=== PATIENT | male | born 1960 | race Hispanic/Latino ===

== ENCOUNTER 2017-04-18 10:39 | Emergency (ER) | payer OTHER ==
[~2017-04-18] VITALS: Ht 165.1 cm; Wt 69.5 kg
[~2017-04-18 10:39] MED LIST: DULO20CA PO; OXYC1TAB11 PO; PEG4000S8 PO; QUET50TA PO
[2017-04-18 10:59] VITALS: BP 128/78; PULSE 79; RESP 17; O2SAT 99
--- NOTE | 2017-04-18 11:04 | ED.REPORT ---
HPI-Chest Pain 40 and Over Date of Service Apr 18, 2017 ED Provider: Malcolm Mac MD A 57 year old male with a history of Hodgkin's lymphoma in remission is referred to the ED from Urgent Care due to chest pain. The pt has been experiencing palpitations and significant chest pain with left arm extension for twelve years, and has been prescribed OxyContin to manage these symptoms. He was prescribed the OxyContin in 5 mg doses but has been taking 10 mg doses to relieve his pain. He has now run out of this medication. The pt denies bowel or bladder incontinence. He has a follow up appointment scheduled on 04/25/2017. Nursing Notes Stated Complaint: CHEST PAIN/FROM UC Chief Complaint: General Complaint Nursing Notes Reviewed: Yes Allergies: Coded Allergies: ibuprofen (Verified Allergy, Unknown, RASH, 11/04/15) Uncoded Allergies: NUTS (Allergy, Unknown, 12/22/14) Scheduled Duloxetine-Expunged Drug, Do Not Renew! (Cymbalta-Expunged Drug, Do Not Renew!) 20 Mg Capsule.dr 20 MG PO DAILY For Mental Wellbeing. Peg 3350/Na Sulf,Bicarb,Cl/Kcl (Golytely Solution) 4,000 Ml Soln.recon 4,000 ML PO UD Quetiapine-Expunged Drug, Do Not Renew! (Seroquel-Expunged Drug, Do Not Renew!) 50 Mg Tablet 50 MG PO DAILY Scheduled PRN Oxycodone/APAP-Expunged Drug, Do Not Renew! (Percocet-Expunged Drug, Do Not Renew!) 1 Each Tablet 1-2 EACH PO Q6 PRN PRN General Time Seen by MD: 11:04 Chief Complaint Chest pain Hx Obtained From: Patient Arrived By: Walk-in Sudden in Onset?: No Onset Occurred: More than a week ago... Symptom Duration: Since onset Recent Healthcare: Recent doctor visit Similar Sx Previous: Yes Past Medical History Past Medical History chronic pain hodgkins lymphoma in 2012 (currently in remission) Past Surgical History right shoulder surgery Smoking History Current Every Day Smoker Social History Alcohol Use: Denies alcohol use Drug Use: Denies drug use Other Social History: Good social support, Local resident Occupation not working Ambulatory Status Independent Review of Systems Respiratory: Denies: Non-productive cough, Shortness of breath Cardiovascular: Reports: Chest pain, Palpitations GI: Denies: Abdominal pain, Vomiting Musculoskeletal: Denies: Back pain, Neck pain Skin: Denies Rash Neurologic: Denies: Bladder dysfunction, Bowel dysfunction Complete sys rev & neg: except as marked. Physical Exam Initial Vital Signs Vital Signs (First) Date Time Temp Pulse Resp B/P Pulse Ox O2 Delivery O2 Flow Rate FiO2 04/18/17 10:59 36.8 79 17 128/78 99 Room Air Initial VS: Reviewed General/Constitutional: Awake, Alert Respiratory / Chest: Atraumatic, Breath sounds NL, Breath sounds = bilat, No respiratory distress left chest wall tenderness Cardiovascular: Heart rate NL, Regular rhythm, Heart sounds NL Abdomen: Atraumatic, Soft, Non-tender Neck: Atraumatic, Supple, Full range of motion Back: Atraumatic, Full range of motion Lower Extremity / Pelvis / MS: Atraumatic, Full range of motion Skin: Atraumatic, Color NL, No rash, Warm, Dry Neurologic: Oriented X3, Speech NL, No motor deficits, No sensory deficits Psychiatric: Affect NL, Mood NL Head / Eyes: Atraumatic, Normocephalic, PERRL, EOMI ENT: Atraumatic, Airway patent, Mucous membranes moist Upper Extremity / MS: Atraumatic, Full range of motion motor and sensory functions normal Interpretation & Diagnostics Lab Results Interpretation Result Diagram: 04/18/17 1233 04/18/17 1233 Test 04/18/17 12:33 White Blood Count 13.3th/mm3 (3.8-10.1) Red Blood Count 4.52mil/mm3 (4.40-5.80) Hemoglobin 14.3g/dL (13.8-17.2) Hematocrit 42.5% (41.0-50.0) Mean Corpuscular Volume 94.0fL (81-100) Mean Corpuscular Hemoglobin 31.6pg (27.0-35.0) Mean Corpuscular Hemoglobin Concent 33.6% (32.0-37.0) Red Cell Distribution Width 13.2% (12.3-15.4) Platelet Count 262bil/L (150-400) Neutrophils (%) (Auto) 74.4% (40-74) Lymphocytes (%) (Auto) 17.5% (14-46) Monocytes (%) (Auto) 6.6% (4-12) Eosinophils (%) (Auto) 1.0% (0-5) Basophils (%) (Auto) 0.2% (0-3) Sodium Level 140mEq/L (134-144) Potassium Level 4.1mEq/L (3.5-5.2) Chloride Level 106mEq/L (97-108) Carbon Dioxide Level 20mmol/L (18-29) Blood Urea Nitrogen 10mg/dL (6-24) Creatinine 0.54mg/dL (0.76-1.27) Estimat Glomerular Filtration Rate 168mL/min (>59) Glucose Level 94mg/dL (60-99) Calcium Level 8.3mg/dL (8.5-10.1) Magnesium Level 2.1mg/dL (1.6-2.6) Total Bilirubin 0.3mg/dL (0.0-1.2) Aspartate Amino Transf (AST/SGOT) 14U/L (0-50) Alanine Aminotransferase (ALT/SGPT) 9U/L (0-44) Alkaline Phosphatase 128U/L (25-150) Troponin T < 0.010ug/L (0.0-0.011) Total Protein 7.0g/dL (6.4-8.4) Albumin 4.1g/dL (3.4-5.0) Hold Gutierrez Top Tube Received (Received) ECG Interpretation ECG Interpretation: normal sinus rhythm with a rate of 68 Time: 11:17 Interpreted by: ED physician X-Ray Chest Interpretation Chest Xray Interpretation: IMPRESSION: Stable chest. No acute cardiopulmonary process is evident. Dictated by: Gio Hahn M.D. on 04/18/2017 at 11:00 Approved by: Gio Hahn M.D. on 04/18/2017 at 11:00 Interpretation / Wet Read by: Interpret - Radiologist Re-Eval/Medical Decision Med Decision/Clinical Course Reproducible and chronic chest wall pain with a reassuring cardiac workup. Patient will be discharged and recommended to follow-up with his primary care for further narcotics. Return precautions given. Source of Hx: Old records Time of Eval: 13:30 Patient Status: Condition improved Re-Evaluation/Progress Note: Pt rechecked, who is comfortable. The diagnosis and plan for discharge are discussed. The pt understands and agrees with the plan. All questions are addressed at this time. Counseled Regarding: Diagnosis, Lab results, Need for follow-up, When/why to return to ED Discharge & Departure Primary Impression: Chest wall pain Disposition: Home Discharge Condition All VS Reviewed: Yes Condition: Stable Additional Instructions: The evaluation of your heart is reassuring. There is no evidence of a heart attack at this point. Follow-up with your regular doctor for further pain management. Return to the ER as needed for concerning signs or symptoms. La evaluacin de lemus corazn es tranquilizante. No hay evidencia de un ataque al corazn en guillermo momento. Hacer shauna visita de seguimiento con lemus doctor de betzaida primaria para que pueda seguir atendiendo el manejo de lemus dolor. GR/Employment Service Specialist Referrals: Tamia Encinas DO (PCP) Scribe Attestation Portions of this note were transcribed by Hetal Naranjo. I, Dr. Mac personally performed the history, physical exam and medical decision-making; I reviewed and confirmed the accuracy of the information in the transcribed note. copies to: Tamia Encinas Timothy S DO Apr 18, 2017 11:04 HETAL NARANJO Apr 18, 2017 11:15
[2017-04-18] MEDS ORDERED: oxyCODONE-Acetamin 5-325 mg Tablet PO ONE (11:10)
--- NOTE | 2017-04-18 12:02 | DRSVH ---
PROCEDURE: X-RAY CHEST ONE VIEW, PORTABLE ([id number]) INDICATIONS: chest pain TECHNIQUE: One view of the chest was acquired. COMPARISON: [facility], , CHEST 2VW, 10/09/2006, 12:05. FINDINGS: Surgical changes and devices: None. Lungs and pleura: No pleural effusions or pneumothorax. Lungs are clear. Mediastinum: Mediastinal contours appear normal. Heart size is normal. Bones and chest wall: No suspicious bony lesions. Overlying soft tissues appear unremarkable. IMPRESSION: Stable chest. No acute cardiopulmonary process is evident. Dictated by: Gio Hahn M.D. on 04/18/2017 at 11:00 Approved by: Gio Hahn M.D. on 04/18/2017 at 11:00
[2017-04-18 12:47] LABS: BASOPHILS % (AUTO) 0.2 % (0-3); MONOCYTES % (AUTO) 6.6 % (4-12); Mean Corpuscular Hemoglobin 31.6 pg (27.0-35.0); NEUTROPHILS % (AUTO) 74.4 % (40-74); Platelet Count 262 bil/L (150-400)
[2017-04-18 13:21] LABS: Magnesium 2.1 mg/dL (1.6-2.6)
[2017-04-18 13:26] LABS: TROPONIN T < 0.010 ug/L (0.0-0.011)
[2017-04-18] MEDS ORDERED: AMOX-366 PO (13:42)
[2017-04-18] MEDS ORDERED: AZIT250T4 PO (13:42)
== END 2017-04-18 13:50 | disposition home or self-care (01) ==
LOC: SED 10:39
DX: R07.89 Other chest pain (principal); R00.2 Palpitations; F17.200 Nicotine dependence, unspecified, uncomplicated; Z88.6 Allergy status to analgesic agent